=== PATIENT | female | born 1980 | race Caucasian/White ===

== ENCOUNTER → 2016-05-31 | Outpatient (CLI) | payer BC ==
[~2016-05-31] MED LIST: ANTIVERT 25MG25 MG PO; BENADRYL25 M1 PO; CLARITIN; CLARITIN 1010 MG/TAB PO; DROSPIRENONE; EFFEXOR25 M1 PO; GRALISE300 MG PO; KLONOPIN 1MG1 MG PO; LAMICTAL150 MG PO; LORTAB 5/500 501 TAB PO; MIRTAZAPINE7.5 MG PO; MOTRIN600 MG PO; NEURONTIN100 MG/CAP; NORCO 325 MG-51 TAB PO; NORCO 325 MG-7.1 TAB PO; PAXIL PO; PRILOSEC 20MG20 MG PO; PYRIDIUM 100MG100 MG PO; REMERON30 MG PO; SEROQUEL100 MG PO; SINGULAIR; SINGULAIR 110 MG/TAB PO; VIBRID; YASMIN 3 MG-0.01 TAB PO; ZANAFLEX 4MG TAB4 MG PO; ZOFRAN 4MG T4 MG/TAB PO; [UNRECOGNIZED DRUG - OTHER]
== END ==
LOC: BHSO 16:10
DX: F41.1 Generalized anxiety disorder (principal)

== ENCOUNTER → 2016-06-08 | Outpatient (CLI) | payer BC | LOC: COL.CARD 07:49 | DX: R25.8 Other abnormal involuntary movements (principal) | CPT/HCPCS: A9585 ==

== ENCOUNTER → 2016-08-30 | Outpatient (CLI) | payer BC | LOC: BHSO 16:10 | DX: F33.41 Major depressive disorder, recurrent, in partial remission (principal) ==

== ENCOUNTER 2016-10-01 15:13 | Emergency (ER) | payer BC ==
[~2016-10-01] VITALS: Ht 165.1 cm; Wt 63.6 kg
[~2016-10-01 15:13] MED LIST changes: -ANTIVERT 25MG25 MG PO; -KLONOPIN 1MG1 MG PO; -NEURONTIN100 MG/CAP; -ZANAFLEX 4MG TAB4 MG PO
[2016-10-01 15:18] VITALS: TEMP 97.9
[2016-10-01 15:57] LABS: BASO # 0.1 (0.0-0.2); BASO % 0.7 % (0.0-2.0); EOS # 0.2 (0.0-0.7); EOS % 2.2 % (0-4.0); GRAN % 74.1 % (42.2-75.2); HEMOGLOBIN 12.5 g/dl (12.5-16.0); LYMPH # 1.3 (1.2-3.4); LYMPH % 18.8 % (20.0-51.0); MEAN CELL VOLUME 83 fl (80.0-100.0); MEAN CORPUSCULAR HEMOGLOBIN 28 pg (27.0-31.0); MEAN CORPUSCULAR HGB CONC 34 g/dl (33.0-37.0); MEAN PLATELET VOLUME 10.3 fl (7.4-10.4); MONO # 0.3 (0.1-0.6); MONO % 3.9 % (1.7-9.3); PLATELET COUNT 276 K/mm3 (130-400); REDCELL DISTRIBUTION WIDTH-CV 13.1 % (11.5-14.5); WHITE BLOOD COUNT 6.8 K/mm3 (4.8-10.8)
[2016-10-01 15:59] LABS: HEMATOCRIT 36.7 % (37.0-47.0)
[2016-10-01 16:10] LABS: ADJUSTED CALCIUM 8.6 mg/dL (8.4-10.2); ALBUMIN 4.3 gm/dL (3.5-5.0); BILIRUBIN,TOTAL 0.7 mg/dL (0.0-1.0); CALCIUM 8.8 mg/dL (8.4-10.2); CREATININE, serum 0.97 mg/dL (0.52-1.25); POTASSIUM 3.8 mmol/L (3.4-5.0)
[2016-10-01] MEDS ORDERED: KLONOPIN 1MG1 MG PO (16:11)
[2016-10-01] MEDS ORDERED: ZANAFLEX 4MG TAB4 MG PO (16:12)
[2016-10-01] MEDS ORDERED: NEURONTIN100 MG/CAP (16:12)
[2016-10-01] MEDS ORDERED: ANTIVERT 25MG25 MG PO (17:02)
[2016-10-01 17:27] VITALS: BP 100/65; PULSE 103
== END 2016-10-01 17:27 | disposition home or self-care (01) ==
LOC: COL.ER 15:13
PROVIDERS: Emergency Medicine
DX: R55 Syncope and collapse (principal); R42 Dizziness and giddiness; G43.909 Migraine, unspecified, not intractable, without status migrainosus; K21.9 Gastro-esophageal reflux disease without esophagitis
CPT/HCPCS: J2765; J7030

== ENCOUNTER → 2016-11-22 | Outpatient (CLI) | payer BC ==
[~2016-11-22] MED LIST changes: +ANTIVERT 25MG25 MG PO; +KLONOPIN 1MG1 MG PO; +NEURONTIN100 MG/CAP; +ZANAFLEX 4MG TAB4 MG PO
== END ==
LOC: BHSO 16:10
DX: F41.1 Generalized anxiety disorder (principal)

== ENCOUNTER → 2017-02-18 | Outpatient (CLI) | payer BC | LOC: BHSO 15:55 | DX: F31.73 Bipolar disorder, in partial remission, most recent episode manic (principal) ==

== ENCOUNTER → 2017-05-13 | Outpatient (CLI) | payer BC | LOC: BHSO 16:16 | DX: F41.1 Generalized anxiety disorder (principal) ==

== ENCOUNTER → 2017-06-27 | Outpatient (CLI) | payer BC | LOC: BHSO 11:20 | DX: F41.1 Generalized anxiety disorder (principal) | CPT/HCPCS: G0463 ==

== ENCOUNTER → 2017-10-16 | Outpatient (CLI) | payer BC ==
[~2017-10-16] VITALS: Ht 165.1 cm; Wt 84.5 kg
[~2017-10-16] MED LIST changes: +LAMICTAL XR200 MG PO; +MOTRIN 600600 MG/TAB PO; +PERCOCET 325 MG1 TA2 PO; +PRENATAL MVI
[2017-10-16 22:22] VITALS: TEMP 98.4
[2017-10-16 23:00] VITALS: BP 131/89; PULSE 86
[2017-10-16 23:30] VITALS: BP 128/82; PULSE 93
[2017-10-17] VITALS: BP 135/83; PULSE 92
[2017-10-17 00:35] VITALS: BP 132/77; PULSE 90; TEMP 98.1
== END ==
LOC: LDRO 22:08
DX: O62.9 Abnormality of forces of labor, unspecified (principal); Z3A.39 39 weeks gestation of pregnancy

== ENCOUNTER 2017-10-17 05:26 | Inpatient (IN) | payer BC ==
[2017-10-17] VITALS (41 sets, daily range): BP systolic 97–157; BP diastolic 53–117; PULSE 71–123; TEMP 97.9–99.3
[~2017-10-17] VITALS: Ht 165.1 cm; Wt 84.5 kg
[~2017-10-17 05:26] MED LIST changes: -MOTRIN 600600 MG/TAB PO; -PERCOCET 325 MG1 TA2 PO
[2017-10-17 07:16] LABS: HEMOGLOBIN 10.1 g/dl (12.5-16.0); MEAN CELL VOLUME 80 fl (80.0-100.0); MEAN CORPUSCULAR HEMOGLOBIN 26 pg (27.0-31.0); MEAN CORPUSCULAR HGB CONC 32 g/dl (33.0-37.0); MEAN PLATELET VOLUME 12.9 fl (7.4-10.4); PLATELET COUNT 183 K/mm3 (130-400); RED BLOOD COUNT 3.91 M/mm3 (4.10-5.30); REDCELL DISTRIBUTION WIDTH-CV 16.2 % (11.5-14.5)
[2017-10-17 07:22] LABS: HEMATOCRIT 31.4 % (37.0-47.0)
[2017-10-17 08:50] LABS: BAND 4 % (0-10); LYMPHOCYTE 6 % (20.0-51.0); NEUTROPHILS 88 % (42.0-75.2); PLATELET ESTIMATE NORMAL (NORMAL)
[2017-10-18 00:30] VITALS: BP 120/75; PULSE 93; TEMP 98.3
[2017-10-18 07:15] VITALS: BP 110/68; PULSE 93; TEMP 98.2
[2017-10-18 07:41] LABS: HEMATOCRIT 24.6 % (37.0-47.0); HEMOGLOBIN 7.7 g/dl (12.5-16.0)
[2017-10-18] MEDS ORDERED: MOTRIN 600600 MG/TAB PO (08:54)
[2017-10-18] MEDS ORDERED: PERCOCET 325 MG1 TA2 PO (08:54)
[2017-10-18 11:40] VITALS: BP 125/83; PULSE 98; TEMP 98.4
[2017-10-18 16:45] VITALS: BP 110/72; PULSE 103; TEMP 98.4
[2017-10-18 21:30] VITALS: BP 127/76; PULSE 95; TEMP 98.3
[2017-10-19 06:40] VITALS: BP 108/75; PULSE 100; TEMP 98.1
== END 2017-10-19 16:25 | disposition home or self-care (01) | DRG 775 ==
LOC: LDRO 05:26 → LDR 05:45 → OB 17:51
PROVIDERS: Obstetrics & Gynecology
PROC: 10E0XZZ Delivery of Products of Conception, External Approach (ICD-10-PCS; principal; 2017-10-17)
PROC: 0KQM0ZZ Repair Perineum Muscle, Open Approach (ICD-10-PCS; 2017-10-17)
DX: O63.1 Prolonged second stage (of labor) (principal); O70.1 Second degree perineal laceration during delivery; O99.513 Diseases of the respiratory system complicating pregnancy, third trimester; O99.343 Other mental disorders complicating pregnancy, third trimester; F32.9 Major depressive disorder, single episode, unspecified; J45.909 Unspecified asthma, uncomplicated; K58.9 Irritable bowel syndrome, unspecified; K21.9 Gastro-esophageal reflux disease without esophagitis; F42.9 Obsessive-compulsive disorder, unspecified; F90.9 Attention-deficit hyperactivity disorder, unspecified type; Z96.642 Presence of left artificial hip joint; O26.893 Other specified pregnancy related conditions, third trimester; Z3A.39 39 weeks gestation of pregnancy; Z37.0 Single live birth
CPT/HCPCS: J2405; J2590; J2795; J7120

== ENCOUNTER → 2017-10-29 | Outpatient (CLI) | payer BC ==
[~2017-10-29] MED LIST changes: +MOTRIN 600600 MG/TAB PO; +PERCOCET 325 MG1 TA2 PO
== END ==
LOC: OLC 10:13
DX: Z39.1 Encounter for care and examination of lactating mother (principal); Z71.89 Other specified counseling

== ENCOUNTER → 2017-11-01 | Outpatient (CLI) | payer BC | LOC: LAC 12:17 | DX: Z39.1 Encounter for care and examination of lactating mother (principal); Z71.89 Other specified counseling ==

== ENCOUNTER → 2017-11-04 | Outpatient (CLI) | payer BC | LOC: LAC 13:11 | DX: Z39.1 Encounter for care and examination of lactating mother (principal); Z71.89 Other specified counseling ==

== ENCOUNTER → 2018-07-31 | Outpatient (CLI) | payer BC | LOC: BHSO 08:20 | DX: F31.81 Bipolar II disorder (principal) | CPT/HCPCS: G0463 ==

== ENCOUNTER 2019-11-26 12:27 | Emergency (ER) | payer BC ==
[~2019-11-26] VITALS: Ht 165.1 cm; Wt 70.5 kg
[2019-11-26 12:35] VITALS: TEMP 97.4
[2019-11-26] MEDS ORDERED: NEURONTIN300 MG/CAP PO (13:06)
[2019-11-26] MEDS ORDERED: LAMICTAL150 MG PO (13:07)
[2019-11-26] MEDS ORDERED: CYMBALTA 60MG60 MG PO (13:07)
[2019-11-26 13:18] LABS: COLLECTION METHOD CLEAN CATCH
[2019-11-26 13:21] LABS: BASO % 0.6 % (0.0-2.0); EOS # 0.2 (0.0-0.7); EOS % 2.2 % (0-4.0); GRAN # 4.1 (1.4-6.5); GRAN % 60.9 % (42.2-75.2); HEMATOCRIT 39.6 % (37.0-47.0); HEMOGLOBIN 13.2 g/dl (12.5-16.0); LYMPH % 29.4 % (20.0-51.0); MEAN CELL VOLUME 89 fl (80.0-100.0); MEAN CORPUSCULAR HEMOGLOBIN 30 pg (27.0-31.0); MEAN CORPUSCULAR HGB CONC 33 g/dl (33.0-37.0); MEAN PLATELET VOLUME 10.6 fl (7.4-10.4); MONO # 0.5 (0.1-0.6); MONO % 6.6 % (1.7-9.3); PLATELET COUNT 247 K/mm3 (130-400); RED BLOOD COUNT 4.47 M/mm3 (4.10-5.30); REDCELL DISTRIBUTION WIDTH-CV 12.8 % (11.5-14.5)
[2019-11-26 13:29] LABS: ALBUMIN 4.4 gm/dL (3.5-5.0); BILIRUBIN,TOTAL 0.5 mg/dL (0.0-1.0); CREATININE, serum 1.31 (0.52-1.25); POTASSIUM 4.5 mmol/L (3.4-5.0); TOTAL PROTEIN 7.3 gm/dL (6.4-8.2)
[2019-11-26 14:04] LABS: MUCOUS Present /lpf; PH 6 (5-8); SQUAMOUS EPITHELIAL 0-2 /hpf; URINE APPEARANCE Clear; URINE BACTERIA None Seen /hpf; URINE BILIRUBIN Negative (NEGATIVE); URINE BLOOD Negative (NEGATIVE); URINE COLOR Yellow; URINE GLUCOSE Negative (NEGATIVE); URINE KETONE Negative (NEGATIVE); URINE LEUKOCYTE ESTERASE Negative (NEGATIVE); URINE NITRATE Negative (NEGATIVE); URINE PROTEIN(semi-quant) Negative (NEGATIVE); URINE RBC 0-2 /hpf
[2019-11-26 16:09] VITALS: BP 111/72; PULSE 82
== END 2019-11-26 16:09 | disposition home or self-care (01) ==
LOC: COL.ER 12:27
PROVIDERS: Emergency Medicine
DX: R10.2 Pelvic and perineal pain (principal); Z87.442 Personal history of urinary calculi
CPT/HCPCS: J1170; J1885; J7030; Q9967

== ENCOUNTER 2020-05-09 10:29 | Day surgery (SDC) | payer BC ==
[~2020-05-09] VITALS: Ht 165.1 cm; Wt 71.8 kg
[~2020-05-09 10:29] MED LIST changes: +CYMBALTA 60MG60 MG PO; +PLAQUENIL 200M200 MG PO
[2020-05-09 11:33] VITALS: BP 110/67; PULSE 84; TEMP 98.7
--- NOTE | 2020-05-09 11:40 | NUR ---
Alert/oriented x3, heart regular, lungs clear, bowel sounds active, skin warm/dry/intact, no edema noted. Patient complains of right inguinal hernia that does cause discomfort at times. Patient also reports irritable bowel syndome.
[2020-05-09] MEDS ORDERED: NORCO 325 MG-51 TAB PO (14:26)
[2020-05-09 14:50] VITALS: BP 111/66; PULSE 90; TEMP 98.9
--- NOTE | 2020-05-09 14:50 | NUR ---
Patient arrives back to [facility] alert, denies pain or nausea. Patient monitor applied, vitals stable. Patient has 3 bandaids across upper abdomen that are clean/dry/intact, no drainage noted. Patient given muffin and water.
[2020-05-09 15:05] VITALS: BP 107/59; PULSE 99
[2020-05-09 15:20] VITALS: BP 93/69; PULSE 91
--- NOTE | 2020-05-09 15:20 | NUR ---
Patient tolerated water and muffin without any nausea, vitals stable. Patient states she would like to take a pain pill prior to going home to try and stay ahead of the pain.
[2020-05-09 15:35] VITALS: BP 100/54; PULSE 99
--- NOTE | 2020-05-09 15:45 | NUR ---
Dismissal instructions gone over with patient, she voices understanding and all questions answered.
--- NOTE | 2020-05-09 15:55 | NUR ---
Patient discharged to private vehicle at patient enterance via wheelchair without any complications. Patient leaves thanking staff for services.
== END 2020-05-09 15:55 | disposition home or self-care (01) ==
LOC: SDCO 10:29
DX: K40.90 Unilateral inguinal hernia, without obstruction or gangrene, not specified as recurrent (principal); K21.9 Gastro-esophageal reflux disease without esophagitis; M06.8A Other specified rheumatoid arthritis, other specified site; K58.1 Irritable bowel syndrome with constipation; J45.909 Unspecified asthma, uncomplicated; F32.9 Major depressive disorder, single episode, unspecified; Z79.899 Other long term (current) drug therapy
CPT/HCPCS: C1781; J0330; J0690; J1100; J2175; J2405; J2704; J3010; J7120